=== PATIENT | male | born 1985 | race Caucasian/White ===

== ENCOUNTER 2020-07-08 15:49 | Emergency (ER) | payer OTHER ==
[~2020-07-08] VITALS: Ht 165.1 cm; Wt 108.0 kg
[2020-07-08 16:02] VITALS: BP 179/114; Ht 165.1 cm; Wt 108.0 kg
== END 2020-07-08 17:20 | disposition left against medical advice (07) ==
LOC: ED 15:49
DX: Z53.21 Procedure and treatment not carried out due to patient leaving prior to being seen by health care provider (principal)

== ENCOUNTER 2020-08-09 15:58 | Emergency (ER) | payer OTHER ==
[~2020-08-09] VITALS: Ht 165.1 cm; Wt 108.9 kg
[2020-08-09 16:53] VITALS: Ht 165.1 cm; Wt 108.9 kg
[2020-08-09 19:19] LABS: BASOPHIL % 0.2 % (0-2); PLATELET COUNT 334 x10^3mcL (130-400); RED CELL DISTRIBUTION WIDTH 13.4 % (11.5-14.5)
[2020-08-09 19:23] LABS: CALCIUM 9.3 mg/dL (8.5-10.1); CARBON DIOXIDE 28.1 mmol/L (21-32); CHLORIDE SERUM 100 mmol/L (98-107); CREATININE SERUM 1.1 mg/dL (0.7-1.3); GFR1 > 60 mL/min; GLUCOSE SERUM 128 mg/dL (74-106); POTASSIUM SERUM 3.5 mmol/L (3.5-5.1); SODIUM SERUM 136 mmol/L (136-145)
[2020-08-09 19:29] LABS: ALBUMIN 3.9 g/dL (3.4-5.0); ALKALINE PHOSPHATASE 77 U/L (46-116); ALT/SGPT 64 U/L (16-63); AST/SGOT 29 U/L (15-37); BILIRUBIN TOTAL 0.6 mg/dL (0.20-1.00); LIPASE 125 IU/L (73-393); TOTAL PROTEIN, SERUM 7.5 g/dL (6.4-8.2)
[2020-08-09] MEDS ORDERED: METRONIDAZOLE500 M1 PO (20:20)
[2020-08-09] MEDS ORDERED: CLARITHROMYCIN500 M1 PO (20:21)
[2020-08-09] MEDS ORDERED: [UNRECOGNIZED DRUG - OTHER] PO (20:21)
[2020-08-09] MEDS ORDERED: [UNRECOGNIZED DRUG - CODE] PO (20:22)
[2020-08-10 00:07] VITALS: BP 138/105
== END 2020-08-10 00:07 | disposition home or self-care (01) ==
LOC: ED 15:58
PROVIDERS: Emergency Medicine
DX: N12 Tubulo-interstitial nephritis, not specified as acute or chronic (principal); R31.29 Other microscopic hematuria; N39.0 Urinary tract infection, site not specified
CPT/HCPCS: J1885